=== PATIENT | female | born 1990 | race American Indian/Alaskan Native ===

== ENCOUNTER 2020-07-11 08:49 | Inpatient (IN) | payer OTHER ==
[2020-07-11] MEDS ORDERED: fentaNYL 100 MCG/2 ML INJ IV PRN (10:01)
[2020-07-11] MEDS ORDERED: MINERAL OIL 30 ML ORAL LIQD PO PRN (10:01)
[2020-07-11] MEDS ORDERED: TERBUTALINE 1 MG/1 ML INJ SUB-Q PRN (10:01)
[2020-07-11] MEDS ORDERED: LIDOCAINE (2%) 20 MG/1 ML VIAL 20 ML MDV INFILTRATI ONE ×2 (10:01→19:55)
[2020-07-11] MEDS ORDERED: NALOXONE 0.4 MG/1 ML INJ IV PRN (10:01)
[2020-07-11] MEDS ORDERED: ePHEDrine SULFATE 50 MG/1 ML INJ IV PRN (10:01)
[2020-07-11] MEDS ORDERED: ONDANSETRON 4 MG/2 ML INJ IV PRN (10:01)
[2020-07-11] MEDS ORDERED: BUTORPHANOL 2 MG/1 ML INJ IV PRN ×2 (10:01)
[2020-07-11] MEDS ORDERED: PROMETHAZINE 25 MG TAB PO PRN (10:01)
[2020-07-11] MEDS ORDERED: LACTATED RINGERS 1,000 ML IV SCH (10:15)
--- NOTE | 2020-07-11 10:46 | History and Physical Report ---
History of Present Illness Date of examination: 07/11/20 Date of admission: 07/11/20 08:49 Chief complaint: IOL for morbid obesity History of present illness: 30 y/o with IUP at 39w2d presents for IOL due to morbid obesity. Patient denies contractions, vaginal bleeding, and loss of fluid. Patient endorses active movement. GBS positive. Fetus vertex and EFW 29th %ile per U/S on 06/05. Antepartum course remarkable for glucose intolerance (3h WNL) and tric homonas (with negative treatment of cure). 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 Patient received course through [facility]. Past History Past Medical History: other (obesity) Past Surgical History: no surgical history [facility] [employer] [facility] History: herpes (no history of lesion), trichomonas (during , treated and received negative test of cure) - Obstetrical History Expected Date of Delivery: 07/16/20 Actual Gestation: 39 Week(s) 2 Day(s) : 2 Para: 0 Hx # Term Pregnancies: 0 Number of Pregnancies: 0 Spontaneous Abortions: 0 Induced : 0 Number of Living Children: 0 Medications and Allergies Allergies Allergy/AdvReac Type Severity Reaction Status Date / Time ibuprofen Allergy Itching Verified 07/11/20 10:52 Home Medications Medication Instructions Recorded Confirmed Last Taken Type Vitamin 1 mg PO DAILY 07/11/20 07/11/20 07/10/20 08:00 History Active Meds: Active Medications Butorphanol Tartrate (Butorphanol 2 Mg/1 Ml Inj) 1 mg IV Q2H PRN PRN Reason: Pain, Moderate(4-6) LABOR PAIN Butorphanol Tartrate (Butorphanol 2 Mg/1 Ml Inj) 2 mg IV Q2H PRN PRN Reason: Pain , Severe (7-10) Ephedrine Sulfate (Ephedrine Sulfate 50 Mg/1 Ml Inj) 10 mg IV Q2M PRN PRN Reason: Hypotension Fentanyl (Fentanyl 100 Mcg/2 Ml Inj) 100 mcg IV Q2H PRN PRN Reason: Pain,Severe (7-10) LABOR PAIN Lactated Ringer's (Lactated Ringers) 1,000 mls @ 125 mls/hr IV DIRECT HEBER Oxytocin/Sodium Chloride (Pitocin/Ns 30 Unit/500ml) 30 units in 500 mls @ 40 mls/hr IV TITR HEBER; Protocol Lidocaine (Lidocaine (2%) 20 Mg/1 Ml Vial 20 Ml Mdv) 20 ml INFILTRATI ONCE ONE Stop: 07/11/20 10:02 Mineral Oil (Mineral Oil 30 Ml Oral Liqd) 30 ml PO QHS PRN PRN Reason: Constipation Misoprostol (Misoprostol 25 Mcg Tab) 25 mcg VG Q4H HEBER Stop: 07/11/20 23:01 Naloxone HCl (Naloxone 0.4 Mg/1 Ml Inj) 0.1 mg IV Q2MIN PRN PRN Reason: Res Rate </= 8 or 02 SAT < 92% Ondansetron HCl (Ondansetron 4 Mg/2 Ml Inj) 4 mg IV Q8H PRN PRN Reason: Nausea And Vomiting Promethazine HCl (Promethazine 25 Mg Tab) 25 mg PO Q6H PRN PRN Reason: Nausea And Vomiting Terbutaline Sulfate (Terbutaline 1 Mg/1 Ml Inj) 0.25 mg SUB-Q ONCE PRN PRN Reason: Hyperstimulation/Hypertonicity Review of Systems All systems: negative Eyes: no blurred vision, no diplopia Cardiovascular: no chest pain Respiratory: no shortness of breath Genitourinary: no vaginal bleeding, no leakage of fluid, no pelvic pain, no genital sores, no contractions - Vital Signs Vital signs: Vital Signs Pulse BP 92 H 133/66 07/11/20 09:39 07/11/20 09:39 Temp Pulse Resp BP Pulse Ox 98.6 F 84 20 133/66 99 07/11/20 10:16 07/11/20 10:35 07/11/20 10:16 07/11/20 10:16 07/11/20 10:35 - Physical Exam Breasts: Positive: normal Lungs: Positive: Normal air movement Abdomen: Positive: normal appearance, soft. Negative: distention, tenderness Genitourinary (Female): Positive: normal external genitalia, normal perenium. Negative: perineal/vulvar lesions Vagina: Positive: normal moisture Uterus: Positive: enlarged (consistent w/ IUP at 39w) Extremities: Positive: normal - Obstetrical FHR: category 1 Uterine Contraction Monitor Mode: External Cervical Dilatation: 2 (tight 2cm) Cervical Effacement Percentage: 40 station: -3 Uterine Contraction Frequency (min): no ctx Uterine Contraction Pattern: Absent Results Result Diagrams: 07/11/20 11:30 All other labs normal. Assessment and Plan A: IUP at 39w2d IOL for morbid obesity No ctx, SVE /-3, posterior, soft Cat 1 FHTs GBS+ VSS Antepartum trichomonas, treated w/ neg test of cure 06/05 Glucose intolerance, WNL 3h HSV-2 P: Admit to L&D Initiate cytotec PV q4h, possible cardona bulb Augmentation PRN Ampicillin for GBS+ Valtrex for HSV-2 prophylaxis Epidural as desired by patient once in active labor Anticipate
[2020-07-11] MEDS ORDERED: miSOPROStol 25 MCG TAB VG SCH (11:00)
[2020-07-11] MEDS ORDERED: OXYTOCIN DRIP 30 UNITS/500 ML BAG IV SCH (11:00)
[2020-07-11 12:36] LABS: Hematocrit 37.3 % (30.3-42.9); Hemoglobin 11.9 gm/dl (10.1-14.3); Mean Corpuscular HGB Conc 32 % (30-34); Mean Corpuscular Volume 82 fl (79-97); Platelet Count 239 K/mm3 (140-440); Red Blood Count 4.53 M/mm3 (3.65-5.03); Red Cell Distribution Width 17.1 % (13.2-15.2)
[2020-07-11] MEDS ORDERED: AMPICILLIN/NS 2 GM/100 ML 2 GM/100 ML BAG IV SCH (13:00)
[2020-07-11] MEDS ORDERED: valACYclovir 500 MG TAB PO SCH (13:00)
[2020-07-11] MEDS ORDERED: AMPICILLIN/NS 1 GM/50 ML 1 GM/50 ML BAG IV SCH (17:00)
--- NOTE | 2020-07-11 17:43 | Event Note ---
Date: 07/11/20 Called to bedside for pt report of leaking fluid. Pt grossly ruptured on exam, clear fluid, FHT reassuring, SVE remains /-1. Initiate Pitocin titration.
[2020-07-11] MEDS ORDERED: AMPICILLIN/NS 2 GM/100 ML 2 GM/100 ML BAG IV ONE (18:00)
--- NOTE | 2020-07-11 19:02 | Anesthesia Consultation ---
Anesthesia Consult and Med Hx Date of service: 07/11/20 - Airway Anesthetic Teeth Evaluation: Good ROM Head & Neck: Adequate Mental/Hyoid Distance: Adequate Mallampati Class: Class III Intubation Access Assessment: Possibly Difficult - Pulmonary Exam CTA: Yes (decreased BS at bases) - Cardiac Exam Cardiac Exam: RRR - Pre-Operative Health Status ASA Pre-Surgery Classification: ASA3 Proposed Anesthetic Plan: Epidural - Pulmonary Hx Smoking: No Hx Asthma: No Hx Respiratory Symptoms: No SOB: No COPD: No Home Oxygen Therapy: No Hx Pneumonia: No Hx Sleep Apnea: Yes (snoring denies MIGUEL ANGEL) - Cardiovascular System Hx Hypertension: No Hx Coronary Artery Disease: No Hx Heart Attack/AMI: No Hx Angina: No Hx Percutaneous Transluminal Coronary Angioplasty (PTCA): No Hx Cardia Arrhythmia: No Hx Pacemaker: No Hx Internal Defibrillator: No Hx Valvular Heart Disease: No Hx Heart Murmur: No Hx Peripheral Vascular Disease: No - Central Nervous System Hx Neuromuscular Disorder: No Hx Seizures: No CVA: No Hx Back Pain: Yes Hx Psychiatric Problems: No - Gastrointestinal Hx Ulcer: No Hx Gastroesophageal Reflux Disease: Yes - Endocrine Hx Renal Disease: No Hx End Stage Renal Disease: No Hx Cirrhosis: No Hx Liver Disease: No Hx Insulin Dependent Diabetes: No Hx Non-Insulin Dependent Diabetes: No Hx Thyroid Disease: No Hx Hypothyroidism: No Hx Hyperthyroidism: No - Hematic Hx Anemia: No Hx Sickle Cell Disease: No - Other Systems Hx Alcohol Use: No Hx Substance Use: No Hx Cancer: No Hx Obesity: Yes
--- NOTE | 2020-07-11 19:03 | Progress Note ---
Labor Epidural - Labor Epidural Start Time: 04:00 Stop Time: 04:00 Performed by:: SAMEERA HANNA Procedure: Patient delivered before Epidural could be placed
--- NOTE | 2020-07-11 20:32 | Procedure Note ---
OB Delivery Note - Delivery Date of Delivery: 07/11/20 Laser Print Operator: MEDARDO STEVENS Estimated blood loss: 300cc - Vaginal Delivery presentation: vertex Delivery position: OA Delivery monitor: external FHT, external uterine Route of delivery: Delivery placenta: spontaneous Delivery cord: 3 umbilical vessels Episiotomy: none Delivery laceration: 1st degree Anesthesia: none Delivery comments: counts correct X 2 Called urgently to pt's room , her OB is in the OR delivery live born female placed skin to skin on mom's abdomen Baby to warmer. Placenta and membrane delivered complete and intact, 3 vessel cord. Pit IVFs 1st degree laceration no repair needed. Pt made aware. Wgt 6-6 EBL 300 8/9 Mom and baby remain LDR stable - A at 1 minute: 8 at 5 minutes: 9 Gender: Female
[2020-07-12] MEDS ORDERED: ACETAMINOPHEN 500 MG TAB PO PRN (08:00)
--- NOTE | 2020-07-12 08:43 | Progress Note ---
Assessment and Plan A: PPD1 s/p after IOL for morbid obesity Gestational hypertension GBS+, inadequately treated in labor Bottle, pumped breast milk P: PreE labs and monitor BP closely Monitor clinical status closely Subjective - Subjective Date of service: 07/12/20 Principal diagnosis: S/p Interval history: PPD1 s/p after IOL for morbid obesity Patient reports: appetite normal, voiding normally, pain well controlled, flatus, ambulating normally, no dizzy ambulation, no bowel movement [place]: doing well, bottle feeding (bottle and pumped breast milk) Objective - Vital Signs Latest vital signs: Vital Signs Temp Pulse Resp BP BP BP Pulse Ox 07/12/20 04:19 98.2 F 104 H 18 125/76 94 07/12/20 00:48 98.9 F 106 H 20 145/74 96 07/11/20 23:14 99.4 F 114 H 133/67 07/11/20 23:13 114 H 133/67 07/11/20 22:43 138/79 07/11/20 22:28 106 H 141/66 07/11/20 22:13 103 H 137/60 07/11/20 21:58 107 H 148/70 07/11/20 21:43 103 H 158/72 07/11/20 21:28 141/63 07/11/20 21:13 97 H 150/60 07/11/20 20:58 96 H 148/68 07/11/20 20:43 97 H 140/63 07/11/20 20:29 100 H 147/66 07/11/20 20:26 98.6 F 100 H 20 147/66 07/11/20 20:16 100 H 129/60 07/11/20 19:54 120 H 97 07/11/20 19:49 105 H 99 07/11/20 19:44 99 H 98 07/11/20 19:39 89 99 07/11/20 19:34 88 148/74 98 07/11/20 18:54 88 98 07/11/20 18:49 82 98 07/11/20 18:44 81 95 07/11/20 18:39 84 99 07/11/20 18:36 88 94 07/11/20 18:34 82 96 07/11/20 18:32 81 144/70 12/16/20 18:29 82 97 12/16/20 18:28 83 94 12/16/20 18:24 81 94 12/16/20 18:22 85 94 12/16/20 18:19 88 94 12/16/20 18:16 90 94 12/16/20 18:14 91 H 95 12/16/20 18:11 83 94 12/16/20 18:09 85 95 12/16/20 18:08 89 144/70 1216/20 18:04 87 92 1216/20 18:03 84 142/70 92 12/16/20 17:59 85 100 12/16/20 17:58 82 91 12/16/20 17:54 97 H 97 12/16/20 17:53 98 H 93 12/16/20 17:49 95 H 99 1216/20 17:47 75 76 L 1216/20 17:44 100 H 99 12/16/20 17:42 100 H 94 1216/20 17:38 101 H 96 1216/20 17:36 96 H 94 1216/20 17:33 104 H 99 12/16/20 17:28 98 H 100 1216/20 17:23 95 H 100 12/16/20 17:18 98 H 100 12/16/20 17:13 92 H 100 12/16/20 17:08 91 H 100 1216/20 17:03 96 H 100 12/16/20 17:02 90 124/69 12/16/20 16:58 94 H 99 12/16/20 16:53 92 H 100 12/16/20 16:48 93 H 100 1216/20 16:43 96 H 100 12/16/20 16:38 94 H 100 12/16/20 16:33 104 H 128/60 98 12/16/20 16:20 96 H 97 12/16/20 16:15 93 H 98 12/16/20 16:10 92 H 98 12/16/20 16:05 95 H 98 12/16/20 16:02 97 H 137/80 12/16/20 16:00 90 99 12/16/20 15:55 91 H 99 12/16/20 15:50 89 98 12/16/20 15:45 96 H 99 12/16/20 15:40 92 H 98 12/16/20 15:35 98 H 98 12/16/20 15:32 94 H 134/70 12/16/20 15:30 97 H 98 12/16/20 15:25 91 H 99 12/16/20 15:20 93 H 98 12/16/20 15:15 99 H 98 12/16/20 15:10 98 H 99 12/16/20 15:05 91 H 98 12/16/20 15:02 98 H 137/69 1216/20 15:00 94 H 98 1216/20 14:55 100 H 97 1216/20 14:50 96 H 98 16/20 14:45 95 H 98 1216/20 14:40 94 H 99 1216/20 14:35 99 H 99 16/20 14:34 90 138/72 16/20 14:30 99 H 99 16/20 14:25 95 H 99 12/16/20 14:20 96 H 98 16/20 14:15 96 H 97 16/20 14:10 99 H 99 16/20 14:05 97 H 99 16/20 14:02 93 H 143/73 16/20 14:00 98 H 98 16/20 13:55 94 H 97 16/20 13:50 102 H 97 16/20 13:45 98 H 98 16/20 13:40 104 H 98 16/20 13:35 103 H 98 12/16/20 13:33 103 H 136/75 16/20 13:30 101 H 98 16/20 13:25 101 H 99 16/20 13:20 100 H 98 1216/20 13:15 107 H 98 1216/20 13:10 106 H 97 12/16/20 13:05 101 H 98 12/16/20 13:01 106 H 123/72 12/16/20 13:00 99 F 110 H 18 123/72 97 12/16/20 11:47 96 H 99 12/16/20 11:42 101 H 98 12/16/20 11:37 105 H 97 12/16/20 11:32 97 H 98 12/16/20 11:27 90 99 1216/20 11:22 91 H 98 12/16/20 11:17 86 98 12/16/20 11:12 100 H 98 07/11/20 11:07 96 H 98 07/11/20 11:00 90 99 07/11/20 10:55 87 99 07/11/20 10:50 90 98 07/11/20 10:45 82 99 07/11/20 10:40 84 98 07/11/20 10:35 84 99 07/11/20 10:30 91 H 98 07/11/20 10:25 85 99 07/11/20 10:20 87 98 07/11/20 10:16 98.6 F 89 20 133/66 98 07/11/20 10:15 85 99 07/11/20 10:10 91 H 99 07/11/20 10:05 87 99 07/11/20 10:00 95 H 99 07/11/20 09:55 89 98 07/11/20 09:50 95 H 99 07/11/20 09:45 92 H 99 07/11/20 09:40 94 H 98 07/11/20 09:39 92 H 133/66 Intake and Output 07/11/20 07/12/20 07/12/20 23:59 07:59 15:59 Intake Total 720 Output Total 400 Balance 320 Intake: Oral 240 Intake, Free Water 480 Output: Urine 400 Void 400 Other: Total, Intake Amount 240 Total, Output Amount 400 # Voids Void 2 Estimated Blood Loss 300 - Exam Breasts: Present: normal Abdomen: Present: normal appearance, soft. Absent: distention, tenderness Uterus: Present: normal, firm, fundal height below umbilicus. Absent: bogginess, tenderness Extremities: Present: normal - Labs Labs: Abnormal lab results 07/11/20 Range/Units 11:30 MCH 26 L (28-32) pg RDW 17.1 H (13.2-15.2) %
[2020-07-12 09:29] LABS: Alanine Aminotransferase 9 units/L (7-56); Albumin 3.2 g/dL (3.9-5); Blood Urea Nitrogen 6 mg/dL (7-17); Calcium 8.7 mg/dL (8.4-10.2); Hemolysis Index 0; Uric Acid 5.1 mg/dL (3.5-7.6)
[2020-07-12 09:30] LABS: BUN/Creatinine Ratio 9
[2020-07-12] MEDS ORDERED: PROMETHAZINE 25 MG RECT SUPP PR PRN (11:52)
[2020-07-12] MEDS ORDERED: PROMETHAZINE 25 MG TAB PO PRN (11:52)
[2020-07-12] MEDS ORDERED: WITCH HAZEL/ GLYCERIN PAD TP PRN (11:52)
[2020-07-12] MEDS ORDERED: ONDANSETRON 4 MG/2 ML INJ IV PRN (11:52)
[2020-07-12] MEDS ORDERED: MAGNESIUM HYDROXIDE (MOM) ORAL LIQD UDC PO PRN (11:52)
[2020-07-12] MEDS ORDERED: LANOLIN/ZINC/DIMETHICONE (LANSINOH) 7 GM TP PRN (11:52)
[2020-07-12] MEDS ORDERED: diphenhydrAMINE 25 MG CAP PO PRN (11:52)
[2020-07-12] MEDS ORDERED: IBUPROFEN 600 MG TAB PO SCH (12:00)
[2020-07-12 19:14] LABS: Hematocrit 31.5 % (30.3-42.9); Hemoglobin 10.4 gm/dl (10.1-14.3)
--- NOTE | 2020-07-13 08:43 | Progress Note ---
Assessment and Plan A: PPD #2 s/p at term Morbid Obesity Gestational Hypertension P: Discharge home with follow up in 1 wks for BP check. Subjective - Subjective Date of service: 07/13/20 Principal diagnosis: S/p ; Gestational HTN Interval history: Pt without complaints. Requests to go home later tonight. Patient reports: appetite normal, voiding normally, pain well controlled, ambulating normally [place]: doing well Objective - Vital Signs Latest vital signs: Vital Signs Temp Pulse Resp BP BP Pulse Ox 07/13/20 00:18 98.0 F 102 H 20 135/80 97 07/12/20 16:30 98.6 F 96 H 18 140/77 100 07/12/20 12:00 98.8 F 85 18 138/76 99 Intake and Output 07/12/20 07/13/20 07/13/20 22:59 06:59 14:59 Intake Total 480 120 Balance 480 120 Intake: Oral 480 120 Other: Total, Intake Amount 240 120 # Voids Void 1 1 - Exam Breasts: Present: deferred Abdomen: Present: soft (obese ) Uterus: Present: fundal height at umbilicus Extremities: Present: edema - Labs Labs: Abnormal lab results 07/12/20 Range/Units 08:26 BUN 6 L (7-17) mg/dL Albumin 3.2 L (3.9-5) g/dL
[2020-07-13 16:58] VITALS: BP 129/83
--- NOTE | 2020-07-13 18:14 | Discharge Summary ---
Providers - Providers Date of Admission: 07/11/20 08:49 Date of discharge: 07/13/20 Attending physician: LAYNE DENISE MD Primary care physician: LAYNE DENISE MD Hospitalization Reason for admission: induction of labor Delivery: Procedure details: Please see delivery note. Laceration: 1st degree Other procedures: none complications: none Discharge diagnosis: IUP at term delivered baby: female Hospital course: Pt was admitted for induction of labor and went on to have an which she tolerated well. Her course was complicated by gestational hypertension and she met discharge criteria on PPD#2. She will follow up in 1 week for a BP check. Condition at discharge: Stable Disposition: DC-01 TO HOME OR SELFCARE - Discharge Diagnoses (1) Term of female Status: Acute (2) Morbid obesity Status: Acute (3) Gestational hypertension Status: Acute Qualifiers: Trimester: third trimester Qualified Code(s): O13.3 - Gestational [-induced] hypertension without significant proteinuria, third trimester Plan - Discharge Medications Prescriptions: Ibuprofen [Motrin] 800 mg PO Q8HR PRN #30 tablet PRN Reason: Pain, Moderate (4-6) - Provider Discharge Summary Activity: routine, no sex for 6 weeks, no heavy lifting 4 weeks, no strenuous exercise Diet: routine Instructions: routine Additional instructions: [] Smoking cessation referral if applicable(refer to patient education folder for contact #) [] Refer to [facility]'s [facility] Booklet Call your doctor immediately for: * Fever > 100.5 * Heavy vaginal bleeding ( >1 pad per hour) * Severe persistent headache * Shortness of breath * Reddened, hot, painful area to leg or breast * Drainage or odor from incision. * Keep incision clean and dry at all times and follow doctor's instructions regarding bathing/showering - Follow up plan Follow up: LAYNE DENISE MD [Primary Care Provider] - 7 Days
== END 2020-07-13 21:00 | disposition home or self-care (01) | DRG 774 ==
LOC: LD 08:49 → OB 07-12 00:21
PROVIDERS: ADMIT Obstetrics & Gynecology; ATTEND Obstetrics & Gynecology
PROC: 10E0XZZ Delivery of Products of Conception, External Approach (ICD-10-PCS; principal; 2020-07-11)
PROC: 3E0P7VZ Introduction of Hormone into Female Reproductive, Via Natural or Artificial Opening (ICD-10-PCS; 2020-07-11)
DX: O99.214 Obesity complicating childbirth (principal); O98.52 Other viral diseases complicating childbirth; O13.4 Gestational [pregnancy-induced] hypertension without significant proteinuria, complicating childbirth; Z37.0 Single live birth; Z3A.39 39 weeks gestation of pregnancy; E66.01 Morbid (severe) obesity due to excess calories; Z20.828 Contact with and (suspected) exposure to other viral communicable diseases; Z88.6 Allergy status to analgesic agent; O99.824 Streptococcus B carrier state complicating childbirth; O99.814 Abnormal glucose complicating childbirth; B00.9 Herpesviral infection, unspecified; O99.354 Diseases of the nervous system complicating childbirth; O99.62 Diseases of the digestive system complicating childbirth; K21.9 Gastro-esophageal reflux disease without esophagitis; G47.30 Sleep apnea, unspecified; O70.0 First degree perineal laceration during delivery
CPT/HCPCS: 36415; 80053; 84550; 85014; 85018; 85027; 86592; 86850; 86900; 86901; G0378; J0290; J0595; J2590; J7120; U0003